=== PATIENT | male | born 1930 | race Caucasian/White ===

== ENCOUNTER 2016-10-24 05:32 | Observation (INO) | payer MEDICARE, BC ==
[2016-10-24] VITALS (12 sets, daily range): BP systolic 84–128; BP diastolic 44–69; PULSE 63–79; TEMP 97.9–98.5
[~2016-10-24] VITALS: Ht 170.2 cm; Wt 68.9 kg
[~2016-10-24 05:32] MED LIST: ACULAR OPHTHALMI5 ML OP; AMOXICILLIN 50500 MG PO; APRODINE 60 MG-1 TAB PO; ASPIRIN 81M81 MG/TA2 PO; BIAXIN 500MG T500 MG PO; CEPHALEXIN500 M1; COMPAZINE 110 MG/TAB PO; EPA FISH OIL1000 MG PO; FLONASE NASAL S16 GM NS; LEVAQUIN 750MG750 M1 PO; LEVOXYL0.112 MG PO; LIPITOR 40MG TA40 MG PO; MONODOX100 PO; OCUFLOX OPHTH DR5 ML OP; PLAVIX 75MG TAB75 MG PO; PRED FORTE 1 ML1 ML OP; PREDNISONE20 MG PO; PRILOSEC 20MG20 MG PO; PROTONIX 40MG T40 MG PO; TAMIFLU 75MG75 MG PO; VASOTEC 2.2.5 MG/TAB PO; ZOCOR 20MG20 MG PO; ZYLOPRIM 300MG300 MG PO; [UNRECOGNIZED DRUG - OTHER] RC
[2016-10-24 06:25] LABS: BASO % 0.6 % (0.0-2.0); EOS # 0.2 (0.0-0.7); EOS % 2.9 % (0-4.0); GRAN # 3.8 (1.4-6.5); GRAN % 57.5 % (42.2-75.2); HEMOGLOBIN 12.3 g/dl (13.5-18.0); LYMPH # 1.8 (1.2-3.4); LYMPH % 27.4 % (20.0-51.0); MEAN CELL VOLUME 96 fl (80.0-100.0); MEAN CORPUSCULAR HEMOGLOBIN 32 pg (27.0-31.0); MEAN CORPUSCULAR HGB CONC 33 g/dl (33.0-37.0); MEAN PLATELET VOLUME 9.1 fl (7.4-10.4); MONO # 0.8 (0.1-0.6); MONO % 11.3 % (1.7-9.3); PLATELET COUNT 260 K/mm3 (130-400); RED BLOOD COUNT 3.87 M/mm3 (4.20-5.60); REDCELL DISTRIBUTION WIDTH-CV 13.8 % (11.5-14.5); WHITE BLOOD COUNT 6.6 K/mm3 (4.8-10.8)
[2016-10-24] MEDS ORDERED: FLONASEALLERGY NS (06:52)
[2016-10-25 01:07] VITALS: BP 117/54; PULSE 63; TEMP 98.2
[2016-10-25 04:33] VITALS: BP 121/63; PULSE 62; TEMP 98
[2016-10-25 09:22] VITALS: BP 125/51; PULSE 78; TEMP 96.7
[2016-10-25 13:52] VITALS: BP 113/46; PULSE 70; TEMP 97.5
[2016-10-25 17:38] VITALS: BP 134/62; PULSE 73; TEMP 98.1
[2016-10-25 21:59] VITALS: BP 124/54; PULSE 80; TEMP 98
[2016-10-26 02:09] VITALS: BP 134/58; PULSE 81; TEMP 98.1
[2016-10-26 05:19] VITALS: BP 132/60; PULSE 77; TEMP 97.2
[2016-10-26 09:18] VITALS: BP 131/56; PULSE 73; TEMP 98.8
== END 2016-10-26 13:30 | disposition home or self-care (01) ==
LOC: SDCO 05:32 → SURG 09:07 → SDCO 10-25 13:51 → SURG 10-25 13:51
PROVIDERS: Urology
DX: D09.0 Carcinoma in situ of bladder (principal); Z85.46 Personal history of malignant neoplasm of prostate; Z86.73 Personal history of transient ischemic attack (TIA), and cerebral infarction without residual deficits
CPT/HCPCS: OP; C1769; G0378; J0690; J1100; J2270; J2405; J2704; J3010; J7120; Q9967

== ENCOUNTER → 2017-03-29 | Outpatient (CLI) | payer MEDICARE, BC ==
[~2017-03-29] MED LIST changes: +CEPHALEXIN500 M1 PO; +FLONASEALLERGY NS; +NITROSTAT0.4 MG/TAB SL
== END ==
LOC: COL.RAD 08:46
DX: C85.90 Non-Hodgkin lymphoma, unspecified, unspecified site (principal); R91.8 Other nonspecific abnormal finding of lung field
CPT/HCPCS: Q9967

== ENCOUNTER 2017-06-01 10:37 | Emergency (ER) | payer MEDICARE, BC ==
[~2017-06-01] VITALS: Ht 170.2 cm; Wt 70.5 kg
[~2017-06-01 10:37] MED LIST changes: -CEPHALEXIN500 M1 PO; -NITROSTAT0.4 MG/TAB SL
[2017-06-01 10:39] VITALS: TEMP 98
[2017-06-01] MEDS ORDERED: CEPHALEXIN500 M1 PO (11:49)
[2017-06-01 11:53] LABS: BASO % 0.6 % (0.0-2.0); EOS # 0.1 (0.0-0.7); EOS % 1.1 % (0-4.0); GRAN # 4.5 (1.4-6.5); GRAN % 67.5 % (42.2-75.2); LYMPH # 1.4 (1.2-3.4); LYMPH % 21.4 % (20.0-51.0); MEAN CELL VOLUME 98 fl (80.0-100.0); MEAN CORPUSCULAR HGB CONC 33 g/dl (33.0-37.0); MEAN PLATELET VOLUME 9.3 fl (7.4-10.4); MONO # 0.6 (0.1-0.6); MONO % 9.2 % (1.7-9.3); PLATELET COUNT 263 K/mm3 (130-400); RED BLOOD COUNT 3.67 M/mm3 (4.20-5.60); REDCELL DISTRIBUTION WIDTH-CV 14.2 % (11.5-14.5); WHITE BLOOD COUNT 6.6 K/mm3 (4.8-10.8)
[2017-06-01 11:54] LABS: HEMATOCRIT 35.9 % (42.0-52.0); HEMOGLOBIN 11.8 g/dl (13.5-18.0); MEAN CORPUSCULAR HEMOGLOBIN 32 pg (27.0-31.0)
[2017-06-01 12:04] LABS: ADJUSTED CALCIUM 9.1 mg/dL (8.4-10.2); ALANINE AMINOTRANSFERASE 34 U/L (21-72); ALKALINE PHOSPHATASE 67 U/L (50-136); ANION GAP 11 mmol/L (7-16); BILIRUBIN,TOTAL 1.1 mg/dL (0.0-1.0); BLOOD UREA NITROGEN 19 mg/dL (9-20); CALCIUM 9.1 mg/dL (8.4-10.2); CARBON DIOXIDE 27 mmol/L (22-30); CHLORIDE 105 mmol/L (98-107); CREATININE, serum 0.96 mg/dL (0.66-1.25); GLUCOSE 103 mg/dL (74-106); POTASSIUM 4.1 mmol/L (3.4-5.0); SODIUM 142 mmol/L (137-145); TOTAL PROTEIN 6.7 gm/dL (6.4-8.2)
[2017-06-01 12:15] LABS: B-TYPE NATRIURETIC PEPTIDE 89 pg/mL (0-450)
[2017-06-01 12:16] LABS: TROPONIN-I < 0.012 ng/mL (0.000-0.034)
[2017-06-01] MEDS ORDERED: NITROSTAT0.4 MG/TAB SL (14:24)
[2017-06-01 14:53] VITALS: BP 138/64; PULSE 66
== END 2017-06-01 15:08 | disposition home or self-care (01) ==
LOC: COL.ER 10:37
PROVIDERS: Emergency Medicine
DX: M79.602 Pain in left arm (principal); R42 Dizziness and giddiness; Z79.02 Long term (current) use of antithrombotics/antiplatelets

== ENCOUNTER → 2017-06-02 | Outpatient (CLI) | payer MEDICARE, BC ==
[~2017-06-02] VITALS: Ht 170.2 cm; Wt 68.4 kg
[~2017-06-02] MED LIST changes: +CEPHALEXIN500 M1 PO; +NITROSTAT0.4 MG/TAB SL
[2017-06-02 10:44] VITALS: BP 150/79; PULSE 64
[2017-06-02 11:45] VITALS: BP 142/71; PULSE 96
[2017-06-02 11:47] VITALS: BP 144/68; PULSE 94
== END ==
LOC: COL.CARD 10:17
DX: I44.0 Atrioventricular block, first degree (principal); I45.10 Unspecified right bundle-branch block; I20.9 Angina pectoris, unspecified
CPT/HCPCS: A9502; J2785

== ENCOUNTER → 2017-09-06 | Outpatient (REF) | LOC: ZMSC 11:50 | DX: Z01.89 Encounter for other specified special examinations (principal) ==

== ENCOUNTER → 2017-12-11 | Outpatient (CLI) | payer MEDICARE, BC | LOC: ZCOL.LAB 14:18 | DX: J32.0 Chronic maxillary sinusitis (principal) ==